=== PATIENT | female | born 1970 | race Caucasian/White ===

== ENCOUNTER 2016-11-29 11:28 | Day surgery (SDC) | payer MEDICARE, MEDICAID ==
[~2016-11-29] VITALS: Ht 170.2 cm; Wt 92.5 kg
[2016-11-29] VITALS (10 sets, daily range): BP systolic 120–146; BP diastolic 66–85; PULSE 95–119; TEMP 97.9–98.5
[~2016-11-29 11:28] MED LIST: ADVIL200 MG PO; LAMICTAL200 MG PO; NORCO 325 MG-7.1 TAB PO; PRISTIQ100 MG PO; ROXICODONE 55 MG/TAB PO; WELLBUTRIN 75MG75 MG PO
[2016-11-30 02:05] VITALS: BP 124/67; PULSE 81; TEMP 98
[2016-11-30 05:02] VITALS: BP 128/59; PULSE 96; TEMP 98
[2016-11-30 09:12] VITALS: BP 130/64; PULSE 116; TEMP 97.8
== END 2016-11-30 13:48 | disposition home or self-care (01) ==
LOC: SDCO 11:28 → SURG 17:30 → SDCO 18:50
DX: T81.33XA Disruption of traumatic injury wound repair, initial encounter (principal)
CPT/HCPCS: OP; C1713; J0330; J1100; J1170; J1200; J2405; J2704; J2710; J3010; J7120

== ENCOUNTER 2023-06-21 10:04 | Outpatient (RCR) | payer MEDICARE, MEDICAID | END 2023-07-16 | LOC: MKS.ESL.PT | DX: M25.561 Pain in right knee (principal); M25.562 Pain in left knee ==

== ENCOUNTER → 2023-09-14 13:54 | Outpatient (RCR) | payer MEDICARE, MEDICAID | END | disposition home or self-care (01) | LOC: MKS.ESL.PT 07-17 08:15 | DX: M25.562 Pain in left knee (principal); M25.561 Pain in right knee ==